=== PATIENT | female | born 1990 | race Caucasian/White ===

== ENCOUNTER 2016-11-03 15:15 | Emergency (ER) | payer OTHER ==
[~2016-11-03] VITALS: Ht 167.6 cm; Wt 80.3 kg
[2016-11-03 15:18] VITALS: BP 117/76
== END 2016-11-03 17:04 | disposition home or self-care (01) ==
LOC: ED 15:15
DX: S09.90XA Unspecified injury of head, initial encounter (principal); W20.8XXA Other cause of strike by thrown, projected or falling object, initial encounter; Y93.89 Activity, other specified; Y92.89 Other specified places as the place of occurrence of the external cause; Y99.8 Other external cause status